=== PATIENT | male | born 1960 | race American Indian/Alaskan Native ===

== ENCOUNTER 2016-08-09 15:35 | Outpatient (CLI) | payer OTHER | END 2016-08-09 15:36 | disposition home or self-care (01) | LOC: LABHHL 15:35 | PROVIDERS: ATTEND Internal Medicine Gastroenterology | DX: Z12.11 Encounter for screening for malignant neoplasm of colon (principal); R94.5 Abnormal results of liver function studies; B19.20 Unspecified viral hepatitis C without hepatic coma | CPT/HCPCS: 88305 ==

== ENCOUNTER 2022-03-18 21:45 | Emergency (ER) | payer OTHER | END 2022-03-18 23:00 | disposition left against medical advice (07) | LOC: ED 21:45 | DX: T15.91XA Foreign body on external eye, part unspecified, right eye, initial encounter (principal); Z53.21 Procedure and treatment not carried out due to patient leaving prior to being seen by health care provider; X58.XXXA Exposure to other specified factors, initial encounter; Y93.89 Activity, other specified; Y92.488 Other paved roadways as the place of occurrence of the external cause; Y99.8 Other external cause status ==